=== PATIENT | male | born 1960 | race Caucasian/White ===

== ENCOUNTER 2017-03-27 20:20 | Emergency (ER) | payer BC ==
--- NOTE | ~2017-03-27 | ER ---
PATIENT'S NAME: RHONDA VERA [facility] AGE: 56 Y [address] ROOM: [place], [place] [address] LOCATION: [facility] ADMIT DATE: 03/27/2017 ER/Outpatient Report DISCHARGE DATE: 03/27/2017 FAMILY PHYSICIAN: Sanju Torres MD ATTENDING PHYSICIAN: Tyler Melo TIME SEEN: 2040 hours. HISTORY OF PRESENT ILLNESS: The patient is a 56-year-old male who presents concerned about elevated blood pressure. The patient said for about the last 3 months he has been under treatment for his blood pressure. The patient does have a home monitoring cuff, which he has been taking frequent measurements of his blood pressure. The patient also admits to a couple episodes of some chest discomfort, which he describes as a sharp pain, possibly related to some reflux. The patient has talked to Dr. Sanju Torres who is in the process of getting him set up for a stress test. The patient does have a family history of his father having coronary artery disease and history of hyperlipidemia. ALLERGIES: NO MEDICINAL ALLERGIES. CURRENT MEDICATIONS: 1. Amlodipine 5 mg daily for blood pressure. 2. He is also on a statin 20 mg daily at night. MEDICAL HISTORY: Hypertension. SURGERIES: Previous cholecystectomy. SOCIAL HISTORY: Denies tobacco or alcohol use. FAMILY HISTORY: Father, history of coronary artery disease with bypass surgery. REVIEW OF SYSTEMS: GENERAL: General health considered good. No recent infections. HEAD AND EENT: Denies headaches or blurred vision. RESPIRATORY: Denies any shortness of breath or cough. CARDIOVASCULAR: He has had 2 episodes of chest discomfort, usually last a few minutes. Pain has been described as more of a sharp pain. Did not radiate. PATIENT'S NAME: RHONDA VERA [facility] AGE: 56 Y [address] ROOM: [place], [place] [address] LOCATION: [facility] ADMIT DATE: 03/27/2017 ER/Outpatient Report DISCHARGE DATE: 03/27/2017 FAMILY PHYSICIAN: Sanju Torres MD ATTENDING PHYSICIAN: Tyler Melo He does not become nauseated or sweaty with the onset of pain. GASTROINTESTINAL: Some history of some mild reflux. No weight loss. No change in his bowel habits. MUSCULOSKELETAL: No peripheral swelling. No calf tenderness. PHYSICAL EXAMINATION: VITAL SIGNS: He had a blood pressure 153/100, his temperature is 99, his respiratory rate 18, pulse 93, and his O2 sats were 100%. GENERAL APPEARANCE: White male, alert, cooperative. HEENT: Eyes: PERRL. No nystagmus. Nose: Septum midline. Mouth: Teeth are in good repair. Oral membranes are moist. NECK: No presence of adenopathy or venous jugular distention. LUNGS: Sounded clear peripherally. HEART: Rhythm is regular. There are no murmurs or gallop noted. ABDOMEN: Soft and nontender. No organomegaly. EXTREMITIES: No pedal edema. No calf tenderness to palpation. DIAGNOSTIC DATA: Chest x-ray: Heart size appeared normal. There are no active infiltrates. LABORATORY DATA AND X-RAYS: CMS: Potassium slightly low at 3.4. Glucose was high at 101. Calcium slightly low at 8.2, otherwise his magnesium 2.2, his CPK 199, his CK-MB 1.2, and his troponin was less than 0.040. He had a CBC, white count 11.6, hemoglobin 15.1. EKG: Appearance of a left-axis deviation, incomplete right bundle. EKG reviewed by Dr. Melo. ASSESSMENT: 1. Hypertension with poor control. 2. History of chest pain, however, not present here in the emergency room. PLAN: We did give him the option of staying here in the hospital and get him set up for a stress test or home and follow up with Dr. Torres tomorrow. The patient opted for going home and seeing Dr. Torres tomorrow. I did recommend that he could increase his blood pressure medicine to 10 mg at bedtime. The patient verbalized understanding of our findings and recommendations and agreed. CANDE DIAZ FOR MD KAT WISDOM/adonis PATIENT'S NAME: RHONDA VERA [facility] AGE: 56 Y [address] ROOM: [place] [address] LOCATION: ED ADMIT DATE: 03/27/2017 ER/Outpatient Report DISCHARGE DATE: 03/27/2017 FAMILY PHYSICIAN: Sanju Torres MD ATTENDING PHYSICIAN: Tyler Melo /[id number] d: 03/28/17 0016 t: 04/03/17 1217, OUTPATIENT REPORT
[~2017-03-27 20:20] MED LIST: LIPITOR10 MG PO; LIPITOR20 M1 PO; MOTRIN600 MG PO; PERCOCET 5-3251 EACH PO; VITAMIN D1000 UNIT PO; VITAMIN D35000 UNI1 PO
[2017-03-27 21:18] LABS: BASOPHIL # 0.1 K/uL (0.0-0.2); BASOPHIL % 0.5 %; EOSINOPHIL # 0.1 K/uL (0.0-0.5); EOSINOPHIL % 1.1 %; HEMATOCRIT 46.2 % (37.0-53.0); HEMOGLOBIN 15.1 g/dL (12.0-17.0); IMMATURE GRANULOCYTE % 0.3 %; LYMPHOCYTE # 2.6 K/uL (0.8-4.0); LYMPHOCYTE % 22.8 %; MCH 26.2 pg (27.0-34.0); MCHC 32.7 gm/dL (32.0-36.5); MCV 80.2 fl (83.0-98.0); MONOCYTE # 0.9 K/uL (0.0-1.0); MONOCYTE % 7.8 %; NEUTROPHIL # (ANC) 7.8 K/uL (1.4-9.0); NEUTROPHIL % 67.5 %; NRBC % 0 /100WBC (0-0.00); PLATELET COUNT 236 K/uL (150-450); RBC 5.76 M/uL (4.00-6.00); RDW-CV 14.4 % (11.9-14.6); WBC 11.6 K/uL (4.0-11.0)
[2017-03-27 21:26] LABS: INR - (THERAPEUTIC) 1.06 (0.92-1.07); PROTIME 11.1 SECONDS (9.8-11.4); PTT 25 SECONDS (25-32)
[2017-03-27 21:38] LABS: ALBUMIN 3.6 gm/dL (3.5-5.0); ALK PHOS 97 IU/L (33-138); ALT 47 IU/L (12-78); ANION GAP 11.4 (10.0-19.0); AST 29 IU/L (10-40); BLOOD UREA NITROGEN 14 mg/dL (6-24); CALCIUM 8.2 mg/dL (8.5-10.5); CHLORIDE 108 mMol/L (96-110); CO2 25 mMol/L (22-32); CPK 199 IU/L (35-332); CREATININE 1.1 mg/dL (0.6-1.3); MAGNESIUM 2.2 mg/dL (1.8-2.6); POTASSIUM 3.4 mMol/L (3.7-5.1); SODIUM 141 mMol/L (135-145); TOTAL BILIRUBIN 0.5 mg/dL (0.0-1.5); TOTAL PROTEIN 7.2 g/dL (6.0-8.4)
== END 2017-03-27 22:18 | disposition disaster alternative care site (69) ==
LOC: GMED 20:20
PROVIDERS: Emergency Medicine
DX: I10 Essential (primary) hypertension (principal); Z79.899 Other long term (current) drug therapy; Z90.49 Acquired absence of other specified parts of digestive tract

== ENCOUNTER → 2017-04-05 | Outpatient (CLI) | payer BC ==
--- NOTE | ~2017-04-05 | ESTC ---
Cardiac Perfusion Imaging Demographics Patient Name JDOY Samuel Gender Male Patient Number [id number] Race Visit Number [id number] Ethnicity Corporate ID Room Number Accession Number [id number] Height 71 inches Date of 1960 Weight 220 pounds Jasvir VILLALOBOS Interpreting Julieta Almodovar Date of study 04/05/2017 Physician Supervising /MATTHEW Ash NM Technologist Mingo Tay MD Ordering Physician Stress research laboratory technician Stress ECG Reading Minoo Ash Nurse Toni Palm RN Physician Jasvir David The procedure was explained in detail to the patient. Risks, complications and alternative treatments were reviewed. Written consent was obtained. Medications Reviewed with Patient prior to Procedure. Procedure Procedure Type: Nuclear Stress Test:Exercise, Cardiolite Stress Test Procedure Start time: 04/05/2017 08:25 Indications: Hypertension. Risk Factors The patient risk factors include:treated hypercholesterolemia, treated hypertension and family history of premature CAD. Conclusions Impression ECG portion of the exercise stress test is clinically negative for ischemia by diagnostic criteria. The Manuel Treadmill score was 10 .This corresponds to a low risk stress test. Myocardial perfusion imaging is mildly abnormal. The images reveal a fixed defect in the basal inferior wall, there is no perfusion defect suggestive of ischemia or infarct . Overall left ventricular systolic function was normal. Calculated LVEF is 54% and TID ratio is 1.02. This is a low risk stress test. Stress Protocols Resting ECG Normal sinus rhythm. Rare PVCs Pre-stress physical exam: Patient assessed by Dr Hennessy prior to testing. Stress Protocol:Exercise Peak HR:136 bpm HR response: Appropriate Predicted HR: 162 bpm BP response: Appropriate % of predicted HR: 84 Test duration:10:00 min Reason for termination:Target heart rate ECG Findings No ECG changes suggestive of ischemia. Arrhythmias Short run of SVT Symptoms No cardiovascular symptoms with maximal exercise. Stress Interpretation Appropriate hemodynamic response to exercise. No significant ST-T wave changes with exercise. EKG portion is negative for ischemia by diagnostic criteria. The Manuel Treadmill score was 10 .This corresponds to a low risk stress test. Imaging Results Summed scores - Summed stress score: 2 - Summed rest score: 3 - Summed difference score: -1 Stress ejection Ejection fraction:54 % EDV :96 ml ESV :44 ml Stroke volume :52 ml LV mass :119 gr Imaging Protocols Rest Stress Isotope:Tc99m Sestamibi IV Isotope: Tc99m Sestamibi IV Isotope dose:14.7 mCi Isotope dose:43.6 mCi Date:04/05/2017 07:20 Date:04/05/2017 09:25 Technique: SPECT Technique: Gated Supine SPECT Supine Scan Time:45-60 minutes post Scan Time:15-30 minutes post injection injection Medical History Admission Data Admission date: 04/05/2017 Admission Time: 06:59 Hospital Status: Outpatient. Signatures dtt: KIMBER OAKES dtd: 04/05/17 0825 Physician Self Edit
--- NOTE | ~2017-04-05 | ECHO ---
Transthoracic Echocardiography Report (TTE) Demographics Patient Name RHONDA VERA Date of Study 04/05/2017 Patient Number [id number] Visit Number [id number] Date of 1960 Room Number Accession Number [id number] Gender Male Age 56 year(s) Referring Brian Horton MD Industrial Methods Consultant Chen Loera [facility], Physician RVT Physician Interpreting Minoo Ash Integrity Consultant Physician Jasvir VILLALOBOS Supervising Ordering Physician Minoo Ash MD/MATTHEW Tay MD Nurse Stress Supervisor Drying And Softening Conclusions Contractility Score Summary Normal Left Ventricular contractility was noted. Summary The estimated left ventricular ejection fraction is 60-65%. Mild concentric left ventricular hypertrophy. The left ventricle is borderline dilated . Diastolic assessment reveals Grade II pseudonormal diastolic function . Mild to moderately dilated right ventricle. Normal right ventricular systolic performance. anterior pericardial effusion. Procedure Type of Study TTE procedure:2D Echocardiogram. Procedure Date Date: 04/05/2017 Start: 10:27 AM Study Location: Inpatient Portable Technical Quality: Adequate visualization Indications:Dyspnea. Additional Indications:HTN Appropriate Use Criteria: 9 Patient Status: Routine Rhythm: Within normal limits HR: 70 bpm BP: 138/82 mmHg M-Mode/2D Measurements LV Diastolic Dimension: 5.36 cm LV Systolic Dimension: 3.58 cm LV Septum Diastolic: 1.08 cm LV Septum Systolic: 3.36 cm LV PW Diastolic: 1.08 cm AO Root Dimension: 2.5 cm Cardiac Output: 6.25 l/min AV Cusp Separation: 1.7 cm RV Diastolic Dimension: 2.68 cm LA volume: 73 ml IVC Inspiration: 0.83 cm LVOT: 2.3 cm RV Base: 4.81 cm LVOT VTI: 21.5 cm RV Mid: 3.76 cm LV Stroke volume: 89.28 ml TAPSE: 2.52 cm TDI-S': 14.4 cm/s Doppler Measurements AV Peak Velocity: 1.66 m/s MV Peak E-Wave: 0.79 m/s AV Peak Gradient: 11.02 mmHg MV Peak A-Wave: 0.64 m/s AV Mean Gradient: 5 mmHg MV E/A Ratio: 1.23 LVOT Peak Velocity: 1.02 m/s MV P1/2t: 54 msec PV Peak Velocity: 1.08 m/s E' Septal Velocity: 0.08 m/s PV Peak Gradient: 4.67 mmHg E' Lateral Velocity: 0.13 m/s A' Septal Velocity: 0.1 m/s MV E/E' Ratio: 9.5 A' Lateral Velocity: 0.12 m/s Findings Left Ventricle Mild concentric left ventricular hypertrophy. The left ventricle is borderline dilated . Diastolic assessment reveals Grade II pseudonormal diastolic function . Right Ventricle Mild to moderately dilated right ventricle. Normal right ventricular systolic performance. Left Atrium The left atrium is mildly dilated by LA volume index measurement. Right Atrium The right atrium is mildly dilated. Mitral Valve Trivial mitral regurgitation by color Doppler. Aortic Valve There is no aortic regurgitation by color Doppler. The aortic valve is mildly sclerotic. Tricuspid Valve No tricuspid regurgitation by color Doppler. The tricuspid valve is not well visualized. Pulmonic Valve No pulmonic valve regurgitation by color Doppler. Pericardial Effusion anterior pericardial effusion. Miscellaneous Visualized portions of the aortic root and ascending aorta appear normal in size. Pleural Effusion No evidence of pleural effusion. Contractility Score LV regional wall motion:(0-Non visualized 1-Normal 2-Hypokinesis 3-Akinesis 4-Dyskinesis 5-Aneurysm) Signature dtt: Kobe Hennessy dtd: 04/05/17 1027 Physician Self Edit
== END | disposition disaster alternative care site (69) ==
LOC: GRAD 03-31 07:45
DX: R06.00 Dyspnea, unspecified (principal); I10 Essential (primary) hypertension; E78.5 Hyperlipidemia, unspecified; E78.00 Pure hypercholesterolemia, unspecified; Z86.79 Personal history of other diseases of the circulatory system
CPT/HCPCS: A9500